=== PATIENT | male | born 1960 | race Caucasian/White ===

== ENCOUNTER → 2016-06-17 | Day surgery (SDC) | payer BC ==
[~2016-06-17] MED LIST: AMARYL PO; BAYER ASPIRIN325 M1 PO; DOXYCYCLINE HY100 M3 PO; METFORMIN HCL500 M1 PO; NEURONTIN300 MG PO; NITROSTAT0.4 MG SL; PRAVASTATIN SOD40 MG PO; PRINIVIL20 M1 PO; TOPROL XL50 MG PO
--- NOTE | ~2016-06-17 | OR ---
Unit #: [id number] #: [id number] Patient: JENS CADET [id number] [facility]. [place], [place] [address] [id number] MR#: [id number] NAME: JENS CADET. ROOM: Date of Procedure: 06/17/2016 Admission Date: 06/17/2016 Surgeon: Erick Pham M.D. : 1960 Attending Physician: Ernst Pham Referring Physician: Ernst Pham Primary Care Physician: Keron Lucas M.D. OPERATIVE REPORT INDICATIONS FOR PROCEDURE This is a pleasant 55-year-old gentleman with pneumonia in the right upper lobe and right lower lobe superior segment. PROCEDURE PERFORMED Bronchoscopy with bronchoalveolar lavage of the right upper lobe and right lower lobe superior segment. ANESTHESIA Per anesthesiology, additional local was benzocaine spray, 2% Xylocaine and 1% lidocaine. DESCRIPTION OF PROCEDURE After obtaining informed consent, bronchoscope was passed oropharyngeally through the bite block. Vocal cords moved symmetrically. There were no lesions on the vocal cords. There was no evidence of any decreased movement of the vocal cords. The bronchoscope was pushed into the trachea, which was straight and had no significant lesions. There were some changes of chronic bronchitis including hypertrophy of the mucous glands. Bronchoscope was then passed in the right upper, right middle, right lower, left upper, left middle, left lower lobes. The mucosa was fairly edematous consistent with some early with chronic bronchitis. There was no evidence of any endobronchial lesions. The BAL 180 mL was introduced in the right upper lobe posterior segment and we had 50 mL returned. The bronchoscope was then passed in the right lower lobe superior segment and 60 mL of sterile non-bacteriostatic saline was introduced and 16 mL was returned. Bronchoscope was then passed to the left side. The left upper, left lingular, and left lower lobes were examined, also to find the same acute bronchitic changes, but there were also no evidence of endobronchial lesion. The patient tolerated procedure well. After the bronchoscope was removed, the patient will be recovered in recovery room and should go home. There is no acute complications and no limitations. SAMPLE Bronchoalveolar lavage x2. Thank you so much, please page me at [phone] if you have any questions. Dictated by... Erick Pham M.D. Unit #: [id number] #: [id number] Patient: JENS CADET/claudia TD: 06/17/2016 23:38 JOB #: [id number] OPERATIVE REPORT Page 1 of 1 X Ernst Pham MD X PROCEDURE OPERATIVE NOTE
[2016-06-17 12:55] LABS: BF TOTAL NUCLEATED CELL COUNT 527 CMM (0-100); BODY FLUID APPEARANCE BLOODY; BODY FLUID RBC 23514 CMM; BODY FLUID SOURCE BRONCHIAL LAVAGE
[2016-06-17 12:55] LABS: BF TOTAL NUCLEATED CELL COUNT 673 CMM (0-100); BODY FLUID APPEARANCE BLOODY; BODY FLUID RBC 13542 CMM; BODY FLUID SOURCE BRONCHIAL LAVAGE
[2016-06-18 16:19] LABS: HSV 1 DNA Not Detected (Not Detected); HSV 2 DNA Not Detected (Not Detected)
[2016-06-19 14:46] LABS: HSV 1 DNA Not Detected (Not Detected); HSV 2 DNA Not Detected (Not Detected)
== END | disposition home or self-care (01) ==
LOC: COPS 06:58
PROVIDERS: Internal Medicine Pulmonary Disease
DX: J18.9 Pneumonia, unspecified organism (principal); E11.9 Type 2 diabetes mellitus without complications; I10 Essential (primary) hypertension; I25.2 Old myocardial infarction; E78.5 Hyperlipidemia, unspecified; F17.210 Nicotine dependence, cigarettes, uncomplicated; Z79.82 Long term (current) use of aspirin; Z79.899 Other long term (current) drug therapy; Z90.49 Acquired absence of other specified parts of digestive tract
CPT/HCPCS: 82947; 87070; 87102; 87107; 87116; 87205; 87206; 87252; 87254; 87278; 87449; 87529; 88108; 88305; 89051; J0171; J2250